=== PATIENT | male | born 1950 | race Caucasian/White ===

== ENCOUNTER 2017-11-23 04:58 | Inpatient (IN) | payer BC ==
[2017-11-23 05:48] LABS: #Eosinphils 0.4 thou/uL (0.0-0.7); #Monocytes 0.6 thou/uL (0.11-0.59); #Neutrophils 3.2 thou/uL (1.40-6.50); %Basophils 0.4 % (0.0-1.0); %Eosinophils 6.2 % (0.0-10.0); %Lymphocytes 32.7 % (21.0-51.0); %Monocytes 8.9 % (0.0-10.0); %Neutrophils 51.8 % (42.0-75.0); Hemoglobin 15.3 g/dL (14.0-18.0); Mean Corpuscular HGB CONC 34.3 g/dL (32.0-36.0); Mean Corpuscular Volume 93.3 fl (80.0-94.0); Mean Platelet Volume 8.6 fL (7.4-10.4); Platelet Count 216 thou/uL (130-400); RBC Distribution Width 11.8 % (11.5-14.5); Red Blood Cell (RBC) Count 4.78 mill/uL (4.70-6.10); White Blood Cell (WBC) Count 6.2 thou/uL (4.8-10.8)
[2017-11-23 05:53] LABS: PTT 27.9 SEC (22.9-36.1); Prothrombin Time 12.8 SEC (12.0-14.7)
[2017-11-23 06:14] LABS: ALT (SGPT) 20 U/L (8-55); AST (SGOT) 25 U/L (5-34); Albumin 4.5 g/dL (3.4-4.8); Alkaline Phosphatase 48 U/L (40-150); Anion Gap 12 mmol/L (10-20); BUN (Urea Nitrogen) 16 mg/dL (8.4-25.7); Bilirubin, Total 0.6 mg/dL (0.2-1.2); CK (CPK) 253 U/L (30-200); Calc. Creatinine Clearance 0 mL/min (70-130); Calcium 9.3 mg/dL (7.8-10.44); Carbon Dioxide 26 mmol/L (23-31); Chloride 103 mmol/L (98-107); Estimated GFR-MDRD 74; Globulin 2.7 g/dL (2.4-3.5); Glucose 114 mg/dL (80-115); Protein, Total 7.2 g/dL (5.8-8.1); Sodium 137 mmol/L (136-145)
[2017-11-23 06:18] LABS: CKMB 6.8 ng/mL (0-6.6); Troponin I 0.472 ng/mL (< 0.028)
[2017-11-23] MEDS ORDERED: Enoxaparin Sodium 100 MG/ML SYRINGE ONE (06:28)
[2017-11-23] MEDS ORDERED: Iopamidol 370 76% 100 ML VIAL ONE (06:50)
[2017-11-23] MEDS ORDERED: Acetaminophen 325 MG TAB PO PRN (08:23)
[2017-11-23] MEDS ORDERED: Ondansetron HCl/PF 4 MG/2 ML Vial IVP PRN (08:23)
[2017-11-23] MEDS ORDERED: Ondansetron ODT 4 MG TAB SL PRN (08:23)
[2017-11-23 08:26] VITALS: BMI 31.1
[2017-11-23] MEDS ORDERED: Nitroglycerin 0.4 MG TAB (25 Tab Bottle) SL PRN ×2 (08:35→14:00)
[2017-11-23] MEDS ORDERED: Bisacodyl 10 MG SUPP PR PRN (08:40)
[2017-11-23] MEDS ORDERED: Sodium Chloride 0.9% 1,000 ML IV SCH ×2 (08:45→14:00)
[2017-11-23] MEDS ORDERED: Aspirin 325 MG TAB PO SCH (09:00)
[2017-11-23] MEDS ORDERED: Enoxaparin Sodium 100 MG/ML SYRINGE SC SCH (09:00)
[2017-11-23] MEDS ORDERED: Carvedilol 3.125 MG TAB PO SCH (09:00)
--- NOTE | 2017-11-23 09:01 | RAD ---
ONE VIEW CHEST: History: Pain. Comparison: None. FINDINGS: Portable upright chest. Normal cardiac silhouette. The pulmonary vessels and hilum are normal. No con solidation or mass. No pneumothorax or osseous abnormality. IMPRESSION: No acute cardiopulmonary process. POS: RON
[2017-11-23] MEDS: Famotidine/PF 20 mg/2ml Vial SLOW IVP SCH ×2 (09:13→21:44)
[2017-11-23] MEDS: Docusate 100 MG CAP PO SCH ×2 (09:13→21:29)
[2017-11-23 09:57] LABS: Troponin I 1.002 ng/mL (< 0.028)
--- NOTE | 2017-11-23 10:44 | HP ---
PRIMARY CARE PHYSICIAN: Dr. Donte Vazquez. PROCESS DEVELOPMENT ENGINEER: Ho Cabrales M.D. CHIEF COMPLAINT: Chest pain. HISTORY OF PRESENT ILLNESS: A 66-year-old male with a known history of familial hyperlipidemia, who presents with a chief complaint of chest pain. The patient has been experiencing chest tightness int ermittently and not consistently reproducible with exertion over the last few months. 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 However, for the last 2 days, he describes ev kiser as a substernal chest pressure under his left chest radiating slightly to his upper portion of hi s left arm. The patient was subsequently brought into the Emergency Department for these symptoms. The patient denies any prior similar issues. Denies any overt shortness of breath with this episode. No episodes of diaphoresis. REVIEW OF SYSTEMS: As per HPI. CONSTITUTIONAL: No recent fevers or chills or acute illnesses. No recent significant weight changes . HEENT: No new headaches, lightheadedness, or vision changes. CARDIOVASCULAR: Chest pain, pressure as described above. RESPIRATORY: No recent upper respiratory infections, no cough. GASTROINTESTINAL: No nausea, vomiting, or abdominal pain. No issues with diarrhea or constipation. GENITOURINARY: No changes in urinary frequency quality or quantity. MUSCULOSKELETAL: No lower leg swelling or cramping. Remainder of review of systems otherwise negative. PAST MEDICAL HISTORY: As per HPI includes the following, history of familial hypertriglyceridemia. HOME MEDICATIONS: Include, 1. Aspirin 81 mg p.o. at bedtime. 2. Pitavastatin 2 mg p.o. at bedtime. ALLERGIES: No known drug allergies. FAMILY HISTORY: Significant for cardiovascular disease, specifically peripheral vascular disease sta tus what sounds like peripheral bypass in his mother. He also has 2 siblings, specifically sisters w ith a familial hypertriglyceridemia as well. SOCIAL HISTORY: Occasional alcohol use on a social basis. The patient is . Never a smoker. No illicit drug use. Recently went on a trip to the [facility], which involved a plane ride. Endorses wishes to be full code at this point in time. PHYSICAL EXAMINATION: GENERAL: The patient is awake, alert, appropriate, in no acute distress, lying in the hospital bed. HEENT: Normocephalic, atraumatic, moist mucous membranes, equal ocular motions are intact. CARDIOVASCULAR: S1 and S2. No murmurs, rubs, no gallops. Pulses 2+ bilateral upper extremities, 2+ bilateral lower extremities, no pitting pedal edema. RESPIRATORY: Reasonable air movement. No conversational dyspnea. No wheezes, rales, or rhonchi. ABDOMEN: Positive bowel sounds, soft, nondistended. MUSCULOSKELETAL: Moving all 4 extremities equally. LABORATORY DATA AND IMAGING: WBC 6.2, hemoglobin 15.3, hematocrit 44.6, platelets 216. PT 12.8, INR 1.0. Sodium 137, potassium 4.0, chloride 103, bicarbonate 26, BUN 16, creatinine 1.02, glucose 114, calcium 9.3, total bilirubin 0.6, AST 25, ALT 20, alkaline phosphatase 48, CK-MB 6.8. Creatinine ki nase 253, troponin 0.472. BNP natriuretic peptide 82.7, total protein 7.2, albumin 4.5. Chest x-ray on 11/23/2017, one view portable impression "no acute cardiopulmonary process." The image was reviewed by myself. I agree with the reading. The patient reports a stress test that was done on an outpatient basis with his patient care team in 07/2017, for which he was told was grossly negative. ASSESSMENT AND PLAN: This is a 66-year-old male presenting with acute onset chest discomfort and aram st pain over the last 2 days. 1. Chest pain. In the setting of an elevated troponin, suspect non-stemi myocardial infarction. Th e patient has been given a single dose of full dose Lovenox in the Emergency Department earlier. I w ill continue with aspirin. Patient is on statin, beta tara as tolerated with carvedilol, captopri l as tolerated hemodynamically. Cardiology has been consulted, the patient sees Dr. Cabrales on out patient basis. Question of whether or not the patient may need a heart catheterization. Trend tropo nins otherwise. Repeat fasting lipid panel. Check a hemoglobin A1c in the morning to evaluate for a ny potential other risk factors. Primary risk factors are his own personal history of familial hyper triglyceridemia, family history of peripheral vascular disease. 2. Hyperlipidemia, see discussion above, continue home regimen. 3. Diet: N.p.o. in case the patient needs heart catheterization. If no procedure is anticipated fo r today, may have cardiac diet. 4. Activity: As tolerated. ADMISSION: Telemetry, FULL CODE, inpatient.
[2017-11-23 12:13] LABS: Troponin I 1.475 ng/mL (< 0.028)
[2017-11-23] MEDS ORDERED: Lidocaine 1% (PF) 30 ML VIAL ONE (13:02)
[2017-11-23] MEDS ORDERED: Fentanyl 100 MCG/2 ML VIAL ONE (13:28)
[2017-11-23] MEDS ORDERED: Midazolam HCl 2 mg/2 ml Vial ONE (13:29)
[2017-11-23] MEDS ORDERED: Verapamil 5 MG/2 ML VIAL ONE (13:37)
[2017-11-23] MEDS ORDERED: Heparin 10,000 UNITS/1 ML VIAL ONE (13:37)
[2017-11-23] MEDS ORDERED: Nitroglycerin 100MG/250ML BOT 250 ML ONE (13:37)
[2017-11-23] MEDS ORDERED: Acetaminophen/Codeine 30-300mg Tablet PO PRN ×2 (14:00)
[2017-11-23] MEDS ORDERED: Sodium Chloride 0.9% 200 ML IV PRN (14:00)
[2017-11-23] MEDS ORDERED: traMADol HCl 50 MG TAB PO PRN (14:00)
[2017-11-23] MEDS ORDERED: Nitroglycerin 50 MG/250 ML BOT 250 ML ONE (14:01)
--- NOTE | 2017-11-23 14:25 | CON ---
DATE OF CONSULTATION: 11/23/2017 CONSULTING PHYSICIAN: Dr. Escudero. REASON FOR CONSULTATION: Non-Q wave AK. HISTORY OF PRESENT ILLNESS: Mr. Saleh is a very pleasant 66-year-old gentleman who has been seen an d evaluated in the past. He underwent a noninvasive stress study performed in 05/2017. He went 6 mi nutes 30 seconds on standard Lucho protocol. This was negative for ischemia. He had been treated fo r hyperlipidemia. He states he recently was on vacation when 3 days ago he began having pain. It was short lived. It then recurred on a 3-4 separate occasions. Last episode this morning at 4:30. He states he woke his and presented to the emergency room. His troponin was in the indeterminate range and was subse quently admitted. PAST MEDICAL HISTORY: Hyperlipidemia. HOME MEDICATIONS: Include aspirin and Livalo. ALLERGIES: None. FAMILY HISTORY: Positive for CAD. SOCIAL HISTORY: Positive alcohol use. He is currently . No current tobacco use. REVIEW OF SYSTEMS: Ten-point review of systems is as above, negative. PHYSICAL EXAMINATION: GENERAL: Patient is a pleasant male who is in no acute distress. The patient appears his stated age . VITAL SIGNS: Blood pressure 163/73, pulse 70, temperature afebrile. NEUROLOGIC: The patient is alert and oriented times 3 with no focal neurologic deficits. HEENT: Sclerae without icterus. Mouth has moist mucous membranes with normal pallor. NECK: No JVD. Carotid upstroke brisk. No bruits bilaterally. LUNGS: Clear to auscultation with unlabored respirations. BACK: No scoliosis or kyphosis. CARDIAC: Regular rate and rhythm with normal S1 and S2. No S3 or S4 noted. No significant rubs, mu rmurs, thrills, or gallops noted throughout the precordium. PMI is not displaced. There is no sanjay ternal heave. ABDOMEN: Soft, nontender, nondistended. No peritoneal signs present. No hepatosplenomegaly. No ab normal striae. EXTREMITIES: 2+ femoral and 2+ dorsalis pedis pulses. No cyanosis, clubbing, or edema. SKIN: No gross abnormalities. PERTINENT LABORATORY DATA: Hemoglobin 15.3. Peak troponin 1.47. Peak MB of 6.8, creatinine 1.02. D-dimer less than 0.027. IMPRESSION: Non-Q myocardial infarction. RECOMMENDATIONS: Mr. Saleh's main risk factor includes a family history and a positive hyperlipidem ia. His symptoms certainly suggest unstable angina. At this point, I recommend coronary angiography plus PCI. I discussed the procedure in full detail with Mr. Saleh. The risks of the procedure incl ude but are not limited to the following: , stroke, AK, need for emergency surgery, loss of fernández b, bleeding, and infection, as well as a reaction to the dye causing kidney failure and needing long- term dialysis. I also discussed the risks of PCI to include all of the above including coronary diss ection and perforation in addition to acute stent thrombosis and restenosis. All questions about the procedure were answered. Given the above, the patient agreed to proceed with coronary angiography a nd possible PCI. All questions about the procedure were answered. Given the above, I also discussed drug-coated versus nondrug coated stent placement. There are no contraindications, we will proceed if needed. Further recommendation pending the above. His was present during the discussion.
[2017-11-23] MEDS: Carvedilol 3.125 MG TAB PO SCH (17:33)
[2017-11-23] MEDS ORDERED: Nitroglycerin 50 MG/250 ML BOT 250 ML IVPB SCH (19:00)
--- NOTE | 2017-11-23 20:18 | CON ---
DATE OF CONSULTATION: 11/23/2017 HISTORY: A 66 soon to be 67-year-old gentleman presented with 1-week history of progressive chest di scomfort. He had previously been chest pain free, working out on a regular basis and then the past 2 weeks, he has noted some exertional discomfort prompting admission with a slight bump in his troponi n. He was found to have nonspecific ST-T wave abnormalities, occasional ectopy. Cardiac catheteriza tion today showed severe lesion in a small, but dominant right coronary artery, a small obtuse margin al and about 75% lesion in the LAD diagonal system. The diagonal had its own mid lesion. Ejection f raction was estimated to be normal and a cardiac echo is pending. PAST MEDICAL HISTORY: Includes familial dyslipidemia. He was noted to have hypertension on this adm ission, but not previously as he has been followed by Dr. Vazquez. LABORATORY VALUES: Showed a peak troponin of 1.5. Creatinine is normal. Hemoglobin is normal. PAST SURGICAL HISTORY: Vasectomy, wisdom teeth. SOCIAL HISTORY: , nonsmoker. HOME MEDICATIONS: Livalo 2 mg and aspirin. PHYSICAL EXAMINATION: VITAL SIGNS: Weight 229, height 6 feet. NECK: No carotid bruits. LUNGS: Clear to auscultation. CARDIAC: Heart rate 67. No murmurs. ABDOMEN: Soft, obese, nontender. EXTREMITIES: He is right arm dominant with a good plethysmography and Humberto's test on the left arm w ith radial compression. He has palpable pedal pulses in both feet with no peripheral edema. He has a right wrist puncture from his catheterization. PLAN: Plan at this time is LAD, diagonal, OM and right coronary grafting with the radial artery. GUEVARA LOEA as well to the LAD. Informed consent has been obtained. Plan on surgical intervention Thursday.
[2017-11-23] MEDS ORDERED: Non-Formulary Item 1 EACH (Pitavastatin Calcium 2 MG) PO SCH (21:00)
[2017-11-23] MEDS: Enoxaparin Sodium 100 MG/ML SYRINGE SC SCH (21:25)
[2017-11-23] MEDS ORDERED: Famotidine 20 MG TAB PO SCH (21:30)
[2017-11-23] MEDS: Atorvastatin Calcium 10 MG TAB PO SCH (21:32)
--- NOTE | 2017-11-23 22:06 | CON ---
DATE OF CONSULTATION: 11/23/2017 SERVICE: Pulmonary Medicine. REASON FOR CONSULTATION: ICU patient. HISTORY OF PRESENT ILLNESS: The patient is a 66-year-old white male with past medical history significant for essentially nothing. He had a negative stress test back in 04/2017. He is start an exercise routine. He is working with a hop strainer. Several times a week, he does extraordinarily intense exercise and breaks out in sweat from head to toe. He did not have any chest discomfort with doing these things. He was recently on vacation in the [facility]. When he return, he started having dyspnea and chest pain on exertion which was rapidly progressive over a period of 3 days. During one of these spells, he was directed to the emergency department. Workup demonstrated an abnormal troponin. It went up through the night. He was undergoing cardiac catheterization, which was abnormal. It is suggesting 3-vessel disease and a Cardiothoracic Surgery consultation was recommended. The patient's blood pressure was elevated during the catheterization. As such, he was initiated on a nitro drip and he is currently in the ICU. PAST MEDICAL HISTORY: 1. Coronary artery disease, new diagnosis. 2. Hypertension. 3. Dyslipidemia. PAST SURGICAL HISTORY: None. ALLERGIES: No known drug allergies. MEDICATIONS: List of his inpatient medications were reviewed. No specific updates were made. SOCIAL HISTORY: Negative for any tobacco, alcohol or illicit drug use. He has no exposure to chemicals, dust, asbestos or tuberculosis. He is a lifelong nonsmoker. FAMILY HISTORY: Noncontributory. REVIEW OF SYSTEMS: General, head, ears, eyes, nose, throat, cardiovascular, respiratory, GI, , musculoskeletal, neurologic and skin is negative except as mentioned in the HPI. PHYSICAL EXAMINATION: VITAL SIGNS: Afebrile, pulse 70, blood pressure 163/70, respirations 16, saturation 100% on room air. GENERAL: The patient is awake and alert, in no apparent distress. LUNGS: Excellent air entry without prolonged expiratory phase, wheezing, rhonchi or crackles. HEART: Normal rate and regular. ABDOMEN: Soft, nontender, nondistended. Bowel sounds are positive. MUSCULOSKELETAL: No cyanosis or clubbing. There is no pitting in the bilateral lower extremities. NEUROLOGIC: Grossly nonfocal. LABORATORY DATA: WBC 6.2, hemoglobin 15.3, platelets 216,000. INR 1.0, D- dimer 0.27. Troponin is up trending to 1.475. BNP 82. Basic metabolic profile and liver function studies are otherwise unremarkable. CK 253. IMAGING: Chest x-ray demonstrates no acute cardiopulmonary abnormality. ASSESSMENT: 1. Non-ST elevation myocardial infarction. 2. Coronary artery disease. 3. Dyslipidemia. 4. Hypertension. DISCUSSION AND PLAN: I will continue to follow along while the patient remains in the ICU. He is currently on a nitro drip. Cardiothoracic Surgery consultation is currently pending. The patient will be going down for revascularization procedure in 1-2 days. He is currently chest pain free. Family was updated at bedside. 70 minutes have been devoted to this patient in various activities. I personally reviewed all imaging studies and laboratory data noted within this document. For fifty percent of this time, I was interacting with the patient at the bedside or coordinating care with the care team. For the remainder of the time I was immediately available to the patient in the hospital unit. ODELL
[2017-11-24 04:39] LABS: #Eosinphils 0.1 thou/uL (0.0-0.7); #Lymphocytes 1.8 thou/uL (1.20-3.40); #Monocytes 0.7 thou/uL (0.11-0.59); #Neutrophils 5.7 thou/uL (1.40-6.50); %Basophils 0.4 % (0.0-1.0); %Eosinophils 1.4 % (0.0-10.0); %Lymphocytes 21.2 % (21.0-51.0); %Monocytes 8.6 % (0.0-10.0); %Neutrophils 68.5 % (42.0-75.0); Hemoglobin 13.8 g/dL (14.0-18.0); Mean Corpuscular HGB CONC 34.7 g/dL (32.0-36.0); Mean Corpuscular Hemoglobin 32.7 pg (27.0-31.0); Mean Corpuscular Volume 94.4 fl (80.0-94.0); Mean Platelet Volume 9.1 fL (7.4-10.4); Platelet Count 196 thou/uL (130-400); Red Blood Cell (RBC) Count 4.21 mill/uL (4.70-6.10); White Blood Cell (WBC) Count 8.3 thou/uL (4.8-10.8)
[2017-11-24 04:50] LABS: Hemoglobin A1c 5.3 % (4.0-6.0)
[2017-11-24 04:54] LABS: Anion Gap 9 mmol/L (10-20); BUN (Urea Nitrogen) 14 mg/dL (8.4-25.7); Calc. Creatinine Clearance 122 mL/min (70-130); Calcium 8.4 mg/dL (7.8-10.44); Carbon Dioxide 28 mmol/L (23-31); Cardiac Risk 7.5 (Less than 4.5); Chloride 106 mmol/L (98-107); Cholesterol 240 mg/dl (< 200 Desired); Estimated GFR-MDRD 85; Glucose 103 mg/dL (80-115); HDL Cholesterol 32 mg/dL (>60 Neg Risk); LDL Cholesterol, Calculated 183 mg/dL; Potassium 4.3 mmol/L (3.5-5.1); Sodium 139 mmol/L (136-145); Triglycerides 124 mg/dL (Less than 150)
[2017-11-24] MEDS ORDERED: Aspirin 325 MG TAB PO SCH (09:00)
[2017-11-24] MEDS: Docusate 100 MG CAP PO SCH ×2 (09:56→20:02)
[2017-11-24] MEDS: Famotidine 20 MG TAB PO SCH ×2 (09:56→20:02)
[2017-11-24] MEDS: Carvedilol 3.125 MG TAB PO SCH ×2 (09:57→17:32)
[2017-11-24] MEDS: Enoxaparin Sodium 100 MG/ML SYRINGE SC SCH (09:57)
--- NOTE | 2017-11-24 09:58 | PRG ---
DATE OF SERVICE: 11/24/2017 SERVICE: Pulmonary medicine. INTERVAL HISTORY: Patient is doing fine from cardiovascular and respiratory standpoint. He denies a ny current chest pain, nausea, vomiting, fevers, or chills. Overnight, in a couple of episodes of ch est discomfort. That being said, they were short lived and less severe than they were previously. James norman continues to be on blood thinners. He requires nitro drip for his blood pressure. PHYSICAL EXAMINATION: VITAL SIGNS: Afebrile, pulse 60, blood pressure 132/64, respirations 19, saturation 97% on room air. GENERAL: Patient is awake, alert, in no apparent distress. LUNGS: Excellent air entry. There is no prolonged expiratory phase, wheezing, rhonchi, or crackles present. HEART: Normal rate, regular. ABDOMEN: Soft, nontender, nondistended. Bowel sounds are positive. MUSCULOSKELETAL: No cyanosis or clubbing. There is no pitting in the bilateral lower extremities. NEUROLOGIC: Grossly nonfocal. LABORATORY DATA: WBC 8.3, hemoglobin 13.8. Basic metabolic profile is completely unremarkable. Tot al cholesterol 240 with an LDL above goal at 183. Hemoglobin A1c 5.3. ASSESSMENT: 1. Non-ST elevation myocardial infarction. 2. Coronary artery disease. 3. Dyslipidemia. 4. Hypertension. PLAN: The patient will remain in the ICU. He is going for coronary artery bypass graft tomorrow subhash chung assuming all goes well. I will continue blood thinners, antiplatelet medications, and nitro dri p. Pulmonary and Critical Care will continue to follow along for the time being. We will continue t o follow along while he remains in this location.
[2017-11-24] MEDS ORDERED: Communication Order-Pharmacy FS SCH (12:40)
--- NOTE | 2017-11-24 13:53 | PDOC.CTH ---
Cardiology Progress Note - Subjective Doing well. No complaints - Objective Vital Signs Temp Pulse Pulse BP BP BP Pulse Ox 11/24/17 09:57 140/62 11/24/17 09:34 67 68 134/67 140/62 94 L 11/24/17 07:00 98.3 F 11/24/17 03:00 97.7 F Pulse Ox 11/24/17 09:57 11/24/17 09:34 95 11/24/17 07:00 11/24/17 03:00 Weight 229 lb 11.2 oz 11/23/17 11/24/17 11/25/17 06:59 06:59 06:59 Intake Total 2545 300 Output Total 1575 1200 Balance 970 -900 - Physical Examination General/Neuro: alert & oriented x3, NAD, other: Neck: carotid US brisk, no JVD present, other: Lungs: CTA, unlabored respirations, other: Heart: PMI normal, RRR, other: Abdomen: no HSM, NT/ND, soft, other: Extremities: + femoral B - Labs Result Diagrams: 11/24/17 03:23 11/24/17 03:23 Troponin/CKMB CK-MB (CK-2) 6.8 ng/mL (0-6.6) H* 11/23/17 05:31 Troponin I 1.475 ng/mL (< 0.028) H* 11/23/17 11:20 - Assessment/Plan 1. NQWMI 2. Severe 3VD 3. HTN 4. Hyperlipidemia Continue lovenox with last dose this evening CABG tomorrow Statin treat for now and change to praluent as outpatient
[2017-11-24] MEDS: Atorvastatin Calcium 10 MG TAB PO SCH (20:02)
--- NOTE | 2017-11-25 00:33 | PDOC.PN ---
- Subjective Encounter Start Date: 11/24/17 Encounter Start Time: 15:00 Subjective: nsg notes rev, baron ovn, no new c/o, at bedside -: reviewed results again from [facility] and plan for AM - Objective Resuscitation Status: Resuscitation Status FULL:Full Resuscitation Vital Signs & Weight: Vital Signs (12 hours) Temp Pulse Resp BP Pulse Ox 11/25/17 00:00 98.0 F 11/24/17 20:02 152/67 H 11/24/17 20:00 97.6 F 74 22 H 97 11/24/17 16:00 98.0 F 11/24/17 15:40 140/62 Weight Weight 229 lb 11.2 oz Most Recent Monitor Data Heart Rate from ECG 63 NIBP 119/52 NIBP BP-Mean 71 Respiration from ECG 16 SpO2 94 I&O: 11/23/17 11/24/17 11/25/17 06:59 06:59 06:59 Intake Total 2545 980 Output Total 1575 1750 Balance 970 -770 Result Diagrams: 11/24/17 03:23 11/24/17 03:23 Phys Exam - Physical Examination Constitutional: NAD HEENT: moist MMs, sclera anicteric Respiratory: no wheezing, no rales, no rhonchi, clear to auscultation bilateral Cardiovascular: RRR, no significant murmur, no rub Gastrointestinal: soft, non-tender, no distention, positive bowel sounds Musculoskeletal: no edema, pulses present Neurological: moves all 4 limbs Psychiatric: normal affect, A&O x 3 Dx/Plan - Plan * NSTEMI * CAD s/p [facility], plan for CV surg, CABG tomorrow HLD stable Diet: cardiac, NPO After midnight Activity: will need cardiac rehab at d/c dvt ppx Review of Systems - Medications/Allergies Allergies/Adverse Reactions: Allergies Allergy/AdvReac Type Severity Reaction Status Date / Time No Known Drug Allergies Allergy Verified 11/23/17 08:23 Medications: Current Medications Acetaminophen/Codeine Phosphate (Tylenol #3) 1 tab PO Q4H PRN PRN Reason: Mild Pain (1-3) Stop: 11/25/17 08:59 Acetaminophen/Codeine Phosphate (Tylenol #3) 2 tab PO Q4H PRN PRN Reason: Moderate Pain (4-6) Stop: 11/25/17 08:59 Aspirin (Aspirin) 325 mg PO DAILY [facility] Stop: 11/25/17 08:59 Last Admin: 11/24/17 09:57 Dose: 325 mg Atorvastatin Calcium (Lipitor) 10 mg PO HS [facility] Stop: 11/25/17 08:59 Last Admin: 11/24/17 20:02 Dose: 10 mg Bisacodyl (Dulcolax) 10 mg [place] Q24H PRN PRN Reason: Constipation Stop: 11/25/17 08:59 Captopril (Capoten) 6.25 mg PO TID [facility] Last Admin: 11/24/17 20:02 Dose: 6.25 mg Carvedilol (Coreg) 3.125 mg PO BID-[facility] Last Admin: 11/24/17 17:32 Dose: 3.125 mg Docusate Sodium (Colace) 100 mg PO BID [facility] Stop: 11/25/17 08:59 Last Admin: 11/24/17 20:02 Dose: 100 mg Famotidine (Pepcid) 20 mg PO BID [facility] Stop: 11/25/17 08:59 Last Admin: 11/24/17 20:02 Dose: 20 mg Nitroglycerin/Dextrose (Nitroglycerin 50 Mg/250 Ml Bot) 250 mls @ 0 mls/hr IVPB INF ELIZABETH PRN Reason: As Directed Stop: 11/25/17 08:59 Last Admin: 11/24/17 23:02 Dose: 250 mls Miscellaneous Information (Communication Order-Pharmacy) 1 each FS ONE [facility] Stop: 11/25/17 08:59 Miscellaneous Medication (Pharmacy To Dose) 1 each IVPB ASDIR ELIZABETH Nitroglycerin (Nitrostat) 0.4 mg SL Q5MIN PRN PRN Reason: Chest Pain Stop: 11/25/17 08:59 Sodium Chloride (Flush - Normal Saline) 10 ml IVF Q12HR [facility] Stop: 11/25/17 08:59 Last Admin: 11/24/17 20:03 Dose: 10 ml Sodium Chloride (Flush - Normal Saline) 10 ml IVF PRN PRN PRN Reason: Saline Flush Stop: 11/25/17 08:59 Tramadol HCl (Ultram) 50 mg PO Q6H PRN PRN Reason: Moderate Pain (4-6) Stop: 11/25/17 08:59
[2017-11-25] MEDS ORDERED: Albumin 5% 500 ML ONE (06:32)
[2017-11-25] MEDS ORDERED: Dexmedetomidine 200 MCG/2 ML VIAL ONE (06:33)
[2017-11-25] MEDS ORDERED: Midazolam HCl 5 mg/5 ml Vial ONE (06:33)
[2017-11-25] MEDS ORDERED: Fentanyl 100 MCG/2 ML VIAL ONE (06:33)
[2017-11-25] MEDS ORDERED: Vecuronium 10 MG VIAL ONE ×3 (06:33→12:35)
[2017-11-25] MEDS ORDERED: Heparin 10,000 UNITS/1 ML VIAL 30,000 UNITS, Admixture Fee 1 EACH in Sodium Chloride 0.... IVPB SCH (06:45)
[2017-11-25] MEDS: Carvedilol 3.125 MG TAB PO SCH (06:53)
[2017-11-25] MEDS ORDERED: CEFAZOLIN/Water 2 GM/20 ML SYRINGE ONE (07:10)
[2017-11-25] MEDS ORDERED: Lidocaine 1% (PF) 30 ML VIAL ONE (07:21)
[2017-11-25] MEDS ORDERED: Bivalirudin 250 MG VIAL ONE ×2 (09:58→10:46)
[2017-11-25] MEDS ORDERED: Sodium Bicarb 50 MEQ/50 ML Abboject 8.4% SYRINGE ONE (12:35)
[2017-11-25] MEDS ORDERED: PROPOFOL 200 MG/20 ML VIAL ONE (12:35)
[2017-11-25] MEDS ORDERED: Papaverine 60 MG/2 ML VIAL ONE (12:35)
[2017-11-25] MEDS ORDERED: Calcium Chloride 1 GM/10 ML Abboject SYRINGE ONE (12:35)
[2017-11-25] MEDS ORDERED: Heparin 5,000 UNITS/ML VIAL ONE (12:35)
[2017-11-25] MEDS ORDERED: Cardioplegic Soln 1,000 ML BAG ONE (12:35)
[2017-11-25] MEDS ORDERED: PHENYLEPHRINE-NS 100 MCG/ML 10 ML SYRINGE ONE (12:35)
[2017-11-25] MEDS ORDERED: Thrombin 5000 UNITS/5 ML VIAL ONE (12:35)
[2017-11-25] MEDS ORDERED: Protamine Sulfate 250 MG/25 ML VIAL ONE (12:35)
[2017-11-25] MEDS ORDERED: ePHEDrine/0.9% NaCl/PF SYRINGE 50 mg/10 ml ONE (12:35)
[2017-11-25] MEDS ORDERED: Lidocaine 1% PF 5 ML VIAL ONE (12:35)
[2017-11-25] MEDS ORDERED: Heparin 30,000 units/30 ml VIAL ONE (12:35)
[2017-11-25] MEDS ORDERED: Nitroglycerin 50 MG/250 ML BOT ONE (12:35)
--- NOTE | 2017-11-25 12:42 | OP ---
PREOPERATIVE DIAGNOSIS: Coronary artery disease. PROCEDURES PERFORMED: Coronary bypass graft x4, left internal mammary artery good quality to a 1.5 m m distal LAD, saphenous vein somewhat large to a 1.5 mm diseased distal right coronary artery, saphen ous vein somewhat large to a 1.5 mm diagonal radial artery to a 1.5-2 mm OM1. SURGEON: Austyn Figueroa M.D. ANESTHESIA: General. MOLD SHOP SUPERVISOR: Carrington Luis M.D. PROCEDURE IN DETAIL: After adequate anesthesia had been obtained, the patient was prepped and draped and I initially harvested the left radial artery, ensuring good collateral flow. This incision was then closed and I turned my attention to the left greater saphenous vein. Based on preoperative ultr asonography, the greater saphenous vein from the groin to the mid thigh was much too large to use, so an incision was made at the knee and carried distally on the leg where the vein was more suitable in size. Following harvesting of this, I turned my attention to median sternotomy where the left inter nal mammary artery was harvested entering the left pleura. After heparinization, the mammary was div ided distally, passed posterior to the thymus gland. Aorta and right atrium were cannulated; however ACT levels did not rise above 420 despite greater than 60,000 units of heparin. The patient was the n loaded with Angiomax and an infusion begun. Cardiopulmonary bypass instituted. Vessels were inspe cted for grafting, the aorta was cross-clamped and a liter of cold blood cardioplegic solution was gi dainel. Following this, the four distal anastomoses were then completed passing a 1.5 mm probe through the distal right coronary artery prior to tying the suture line as well as through the obtuse margina l prior to tying the suture line. After completing the four distal anastomoses, the crossclamp was r emoved and the partial occluding clamp placed and 2 venous anastomoses were performed on the aortic r oot. Following this to the box of the right coronary graft, the radial artery graft was placed. Pr oximal and distal anastomoses were then inspected following which the patient was weaned from cardiop ulmonary bypass. Cannulas were removed and cannulation sites oversewn with Prolene suture. Protamin e was given to reverse the heparin and the Angiomax was stopped prior to coming off pump. Mediastina l and left pleural drains were placed following which the sternum was reapproximated with #7 interrup lorenzo wire using vancomycin paste on the sternal edges, platelet rich blood, and platelet-poor plasma. Subcutaneous tissue and skin were closed in layers.
[2017-11-25 12:50] LABS: Actual Bicarbonate (HCO3a) 25.5 mEq/L (22-26); Base Excess (BEa) -1.4 mEq/L (0 (+/-) 2.5); CO2 Tension 50.2 mmHg (35.0-45.0); Hemoglobin (Hb) 12.4 g/dL (14.0-18.0); O2 Tension (PaO2) 94.9 mmHg (80.0-100.0); pH, Arterial 7.31 (7.35-7.45)
[2017-11-25] MEDS ORDERED: Acetaminophen 325 MG TAB PO PRN (12:50)
[2017-11-25] MEDS ORDERED: Nitroglycerin 50 MG/250 ML BOT 250 ML IVPB PRN (12:50)
[2017-11-25] MEDS ORDERED: Norepinephrine 8 MG/0.9% NS 250 ML IVPB PRN (12:50)
[2017-11-25] MEDS ORDERED: DOPamine 400 MG/D5W 250 ML 250 ML IVPB PRN (12:50)
[2017-11-25] MEDS ORDERED: Guaifenesin DM 100-10/5 ML UDCUP PO PRN (12:50)
[2017-11-25] MEDS ORDERED: Bisacodyl 5 MG TAB PO PRN (12:50)
[2017-11-25] MEDS ORDERED: Phenylephrine 10 MG/NS 250 ML 250 ML IVPB PRN (12:50)
[2017-11-25] MEDS ORDERED: Morphine 4 MG/ML VIAL SLOW IVP PRN (12:50)
[2017-11-25] MEDS ORDERED: Potassium Chloride 20 MEQ/100 ML PREMIX BAG IVPB PRN (12:50)
[2017-11-25] MEDS ORDERED: Post-Op Insulin Drip Protocol IVPB ONE (12:50)
[2017-11-25] MEDS ORDERED: Hetastarch 6% 500 ML 500 ML IVPB PRN (12:50)
[2017-11-25] MEDS ORDERED: Promethazine HCl 25 MG/ML VIAL IM PRN (12:50)
[2017-11-25] MEDS ORDERED: Fentanyl 100 MCG/2 ML VIAL SLOW IVP PRN ×2 (12:50)
[2017-11-25] MEDS ORDERED: HYDROcodone/Acetaminophen 5/325 mg Tablet PO PRN (12:50)
[2017-11-25] MEDS ORDERED: Bisacodyl 10 MG SUPP PR PRN (12:50)
[2017-11-25] MEDS ORDERED: Ondansetron HCl/PF 4 MG/2 ML Vial IVP PRN (12:50)
[2017-11-25] MEDS ORDERED: Mag-Al 1200 mg/1200 mg/30 ML UDCUP PO PRN (12:50)
[2017-11-25] MEDS ORDERED: hydrALAZINE 20 MG/ML VIAL SLOW IVP PRN (12:50)
[2017-11-25 12:51] LABS: Calcium, Ionized 1.2 mmol/L (1.12-1.30); Puncture Site A-LINE
[2017-11-25 12:56] LABS: Actual Bicarbonate (HCO3a) 25.5 mEq/L (22-26); Base Excess (BEa) -1.4 mEq/L (0 (+/-) 2.5); CO2 Tension 50.4 mmHg (35.0-45.0); Hemoglobin (Hb) 12.4 g/dL (14.0-18.0); O2 Tension (PaO2) 94.9 mmHg (80.0-100.0); pH, Arterial 7.31 (7.35-7.45)
[2017-11-25 12:57] LABS: Calcium, Ionized 1.2 mmol/L (1.12-1.30); Puncture Site A-LINE
[2017-11-25] MEDS: Lactated Ringer's 1,000 ML IV SCH ×2 (13:00→23:20)
[2017-11-25] MEDS ORDERED: Dextrose 5% in Water 1,000 ML IV PRN (13:01)
[2017-11-25] MEDS ORDERED: Dextrose 50% Abboject 50 ML SYRINGE SLOW IVP PRN (13:01)
[2017-11-25 13:11] LABS: #Eosinphils 0.2 thou/uL (0.0-0.7); #Lymphocytes 1.9 thou/uL (1.20-3.40); #Monocytes 0.7 thou/uL (0.11-0.59); #Neutrophils 11.5 thou/uL (1.40-6.50); %Basophils 0.1 % (0.0-1.0); %Eosinophils 1.3 % (0.0-10.0); %Lymphocytes 13.4 % (21.0-51.0); %Monocytes 4.9 % (0.0-10.0); %Neutrophils 80.3 % (42.0-75.0); Hemoglobin 12.8 g/dL (14.0-18.0); Mean Corpuscular HGB CONC 33.5 g/dL (32.0-36.0); Mean Corpuscular Hemoglobin 31.8 pg (27.0-31.0); Mean Corpuscular Volume 94.8 fl (80.0-94.0); Mean Platelet Volume 8.5 fL (7.4-10.4); Platelet Count 142 thou/uL (130-400); RBC Distribution Width 11.7 % (11.5-14.5); Red Blood Cell (RBC) Count 4.03 mill/uL (4.70-6.10); White Blood Cell (WBC) Count 14.3 thou/uL (4.8-10.8)
[2017-11-25 13:24] LABS: INR-International Normal Ratio 2.3; PTT 66.4 SEC (22.9-36.1); Prothrombin Time 25.7 SEC (12.0-14.7)
[2017-11-25 13:26] LABS: Anion Gap 6 mmol/L (10-20); BUN (Urea Nitrogen) 14 mg/dL (8.4-25.7); Calc. Creatinine Clearance 137 mL/min (70-130); Calcium 7.9 mg/dL (7.8-10.44); Carbon Dioxide 27 mmol/L (23-31); Chloride 111 mmol/L (98-107); Estimated GFR-MDRD Greater than 90; Glucose 146 mg/dL (80-115); Potassium 4.4 mmol/L (3.5-5.1); Sodium 140 mmol/L (136-145)
[2017-11-25] MEDS: Insulin Regular 300 UNITS/3 ML VIAL SC PRN ×3 (13:26→19:50)
[2017-11-25] MEDS ORDERED: Magnesium Sulfate 5 GM in Sodium Chloride 0.9% 1,000 ML IV SCH (13:30)
--- NOTE | 2017-11-25 14:04 | RAD ---
PORTABLE AP CHEST XRAY: DATE: 11/25/17. HISTORY: Post open heart surgery. COMPARISON: 11/23/17. FINDINGS: There have been interval postsurgical changes related to CABG. Endotracheal tube is noted in place w ith the tip overlying the T3-4 level and well above the level of the don. Right subclavian centra l venous catheter is noted in place with the tip overlying the cavoatrial junction. Nasogastric tube as well as a left-sided thoracostomy tube are present with probable mediastinal drain present. Ther e is atelectasis present at each lung base. No pneumothorax or definite pleural effusion is apprecia lorenzo. IMPRESSION: 1. Postsurgical changes related to recent CABG with lines and tubes in place as described above. 2. Bibasilar atelectasis. POS: CHANDRAKANT
[2017-11-25 14:24] LABS: Actual Bicarbonate (HCO3a) 23.5 mEq/L (22-26); Base Excess (BEa) -1.6 mEq/L (0 (+/-) 2.5); CO2 Tension 40.9 mmHg (35.0-45.0); Calcium, Ionized 1.1 mmol/L (1.12-1.30); Hemoglobin (Hb) 13.3 g/dL (14.0-18.0); O2 Tension (PaO2) 85.6 mmHg (80.0-100.0); pH, Arterial 7.38 (7.35-7.45)
[2017-11-25 14:25] LABS: ALV-art Gradient 148.475 (0-20); Puncture Site A-LINE
[2017-11-25] MEDS: Ketorolac Tromethamine 30 MG/ML VIAL IVP SCH ×3 (15:21→23:21)
[2017-11-25] MEDS: CEFAZOLIN/Water 2 GM/20 ML SYRINGE SLOW IVP SCH ×2 (15:23→23:21)
[2017-11-25] MEDS: HYDROcodone/Acetaminophen 5/325 mg Tablet PO PRN ×2 (16:37→23:26)
--- NOTE | 2017-11-25 17:19 | PDOC.CTH ---
Cardiology Progress Note - Subjective Recent CABG. Doing well. Intubated but awake - ROS not able to obtain ROS - Objective Vital Signs Temp Pulse Resp BP Pulse Ox 11/25/17 14:30 93 15 99 11/25/17 13:53 98.4 F 87 14 100 11/25/17 13:46 87 127/65 11/25/17 13:29 80 144/76 H 11/25/17 12:41 80 134/77 11/25/17 07:41 98.3 F 77 18 94 L 11/25/17 07:00 98.3 F 11/25/17 06:55 149/76 H Weight 229 lb 11.2 oz 11/24/17 11/25/17 11/26/17 06:59 06:59 06:59 Intake Total 2545 1056 Output Total 1575 2050 0 Balance 970 -994 0 - Physical Examination General/Neuro: NAD Neck: carotid US brisk, no JVD present, other: Lungs: CTA, unlabored respirations, other: Heart: PMI normal, RRR, other: Abdomen: no HSM, NT/ND, soft, other: Extremities: + femoral B - Labs Result Diagrams: 11/25/17 12:50 11/25/17 12:50 Troponin/CKMB CK-MB (CK-2) 6.8 ng/mL (0-6.6) H* 11/23/17 05:31 Troponin I 1.475 ng/mL (< 0.028) H* 11/23/17 11:20 - Assessment/Plan 1. NQWMI 2. Severe 3VD 3. HTN 4. Hyperlipidemia 5. s/op CABG Doing well post op Wean the vent titrate down IV nitro as tolerate. Will follow
[2017-11-25 18:52] LABS: Hemoglobin 13.2 g/dL (14.0-18.0)
[2017-11-25 19:06] LABS: Potassium 4.3 mmol/L (3.5-5.1)
--- NOTE | 2017-11-25 20:36 | EKG ---
Test Reason : POST CABG Blood Pressure : / mmHG Vent. Rate : 088 BPM Atrial Rate : 088 BPM P-R Int : 164 ms QRS Dur : 094 ms QT Int : 386 ms P-R-T Axes : 082 -62 047 degrees QTc Int : 467 ms Sinus rhythm with Premature supraventricular complexes Left anterior fascicular block Cannot rule out Inferior infarct (masked by fascicular block?) , age undetermined Abnormal ECG When compared with ECG of 23-NOV-2017 05:04, (Unconfirmed) Premature supraventricular complexes are now Present Minimal criteria for Inferior infarct are now Present Nonspecific T wave abnormality now evident in Lateral leads QT has lengthened Confirmed by DAVID GAINES, DR. Altamirano ([id number]) on 11/25/2017 8:36:04 PM Referred By: IRA Confirmed By:DR. Adarsh HERNANDEZ MD
[2017-11-25] MEDS ORDERED: Famotidine/PF 20 mg/2ml Vial SLOW IVP SCH (21:00)
--- NOTE | 2017-11-25 23:16 | PDOC.PN ---
- Subjective Encounter Start Date: 11/25/17 Encounter Start Time: 17:00 Subjective: nsg notes rev, baron ovn, no new issues post CABG - Objective Resuscitation Status: Resuscitation Status FULL:Full Resuscitation Vital Signs & Weight: Vital Signs (12 hours) Temp Pulse Resp BP Pulse Ox 11/25/17 20:00 97.8 F 101 H 15 95 11/25/17 19:00 97.8 F 11/25/17 16:00 98.0 F 99 11/25/17 14:30 93 15 99 11/25/17 13:53 98.4 F 87 14 100 11/25/17 13:46 87 127/65 11/25/17 13:29 80 144/76 H 11/25/17 12:41 80 134/77 Weight Weight 229 lb 11.2 oz Most Recent Monitor Data Heart Rate from ECG 94 NIBP 122/75 NIBP BP-Mean 98 Respiration from ECG 12 SpO2 99 I&O: 11/24/17 11/25/17 11/26/17 06:59 06:59 06:59 Intake Total 2545 1056 1348 Output Total 1575 2050 1540 Balance 970 -994 -192 Result Diagrams: 11/25/17 18:24 11/25/17 18:24 Additional Labs: Accuchecks 11/25/17 11/25/17 11/25/17 19:51 17:26 12:47 POC Glucose 148 H 142 H 140 H 11/25/17 11/25/17 11/25/17 12:08 11:25 11:05 POC Glucose 166 H 188 H 185 H 11/25/17 11/25/17 11/25/17 10:44 10:26 09:33 POC Glucose 163 H 144 H 137 H 11/25/17 07:59 POC Glucose 119 H Dx/Plan - Plan * NSTEMI * appreciate cardiology c/s * appreciate CV surg c/s * s/p CABG, tolerated procedure well, resting comfortably HLD stable Diet: as per surgery Activity: will need cardiac rehab at d/c, possibly outpatient dvt ppx
[2017-11-26 04:18] LABS: #Lymphocytes 1.2 thou/uL (1.20-3.40); #Monocytes 1.1 thou/uL (0.11-0.59); %Basophils 0.1 % (0.0-1.0); %Eosinophils 0.1 % (0.0-10.0); %Lymphocytes 11.8 % (21.0-51.0); %Monocytes 10.3 % (0.0-10.0); %Neutrophils 77.6 % (42.0-75.0); Hemoglobin 12.1 g/dL (14.0-18.0); Mean Corpuscular HGB CONC 33.6 g/dL (32.0-36.0); Mean Corpuscular Volume 95.2 fl (80.0-94.0); Mean Platelet Volume 8.4 fL (7.4-10.4); Platelet Count 153 thou/uL (130-400); RBC Distribution Width 11.7 % (11.5-14.5); White Blood Cell (WBC) Count 10.3 thou/uL (4.8-10.8)
[2017-11-26 04:43] LABS: Anion Gap 7 mmol/L (10-20); BUN (Urea Nitrogen) 15 mg/dL (8.4-25.7); Calc. Creatinine Clearance 139 mL/min (70-130); Calcium 8.2 mg/dL (7.8-10.44); Carbon Dioxide 29 mmol/L (23-31); Chloride 107 mmol/L (98-107); Estimated GFR-MDRD Greater than 90; Glucose 117 mg/dL (80-115); Potassium 4.2 mmol/L (3.5-5.1); Sodium 139 mmol/L (136-145)
[2017-11-26] MEDS: Ketorolac Tromethamine 30 MG/ML VIAL IVP SCH ×3 (05:00→17:10)
[2017-11-26] MEDS: HYDROcodone/Acetaminophen 5/325 mg Tablet PO PRN ×3 (05:01→21:33)
[2017-11-26] MEDS: Lactated Ringer's 500 ML IV SCH ×2 (08:29→17:06)
--- NOTE | 2017-11-26 09:02 | PRG ---
DATE OF SERVICE: 11/25/2017 SERVICE: Pulmonary Medicine. INTERVAL HISTORY: The patient just had his coronary artery bypass graft. He returned to the ICU, in tubated. He is slowly waking up from sedation. He has no specific complaints. There were no specif ic events. He is a little hypertensive, requiring some blood pressure medications, which have been w eaned off with p.r.n. intermittent dosing of hydralazine. PHYSICAL EXAMINATION: VITAL SIGNS: Afebrile, pulse 83, blood pressure 122/61, respirations 14, saturation 100% on 40% FiO2 . GENERAL: The patient is intubated and under the influence of some sedation. HEENT: Normocephalic, atraumatic. Sclerae are white. Conjunctivae pink. Oral and nasal mucosa is moist without lesions. LUNGS: Decent air entry. There is no prolonged expiratory phase. HEART: Normal rate, regular. ABDOMEN: Soft, nontender, nondistended. Bowel sounds are positive. MUSCULOSKELETAL: No cyanosis or clubbing. There is no pitting. GENITOURINARY: Jimenez catheter in place. NEUROLOGIC: Grossly nonfocal. LABORATORY DATA: WBC 14.3, hemoglobin 12.8, platelets 142,000. INR 2.3. A pH 7.38, pCO2 of 41, pO2 of 85. Basic metabolic profile is essentially unremarkable with a creatinine of 0.8. IMAGING: Chest x-ray demonstrates endotracheal tube is 5 cm above the don. There is a right subc lavian central venous catheter in good position. New sternotomy wires are present. Enteric catheter courses below the level of the diaphragm. There is a right-sided thoracostomy drain, which is in go od position. I cannot identify the mediastinal drain. There is some bibasilar volume loss, which ac centuated our interstitial and vascular markings. ASSESSMENT: 1. Non-ST elevation myocardial infarction. 2. Coronary artery disease, status post coronary artery bypass graft, postop day #0. 3. Dyslipidemia. 4. Hypertension. DISCUSSION AND PLAN: The patient will remain in the ICU. We are going to give him a spontaneous doreen athing trial once he comes around a little bit more. Once he does, extubation will be considered. P ulmonary Critical Care will continue to follow along. CRITICAL CARE TIME: 30 minutes.
[2017-11-26] MEDS: Famotidine 20 MG TAB PO SCH ×2 (09:26→20:51)
[2017-11-26] MEDS: Aspirin 325 MG TAB PO SCH (09:27)
[2017-11-26] MEDS: CEFAZOLIN/Water 2 GM/20 ML SYRINGE SLOW IVP SCH (09:28)
--- NOTE | 2017-11-26 09:43 | RAD ---
FRONTAL RADIOGRAPH OF CHEST: Date: 11/26/17 COMPARISON: 11/25/17. HISTORY: Status post open heart surgery. FINDINGS: Endotracheal tube and nasogastric tube have been removed. Stable right-sided vascular catheter. No pn eumothorax is seen. Midline sternotomy wires are present. Stable postoperative drain overlies the mediastinum and medial aspect of left hemithorax superiorly. Dense opacity noted in the medial left base suggesting partial consolidation/collapse of the left low er lobe. IMPRESSION: Lines and tubes as detailed above. Increased density noted in the medial left lung base. POS: [facility]
--- NOTE | 2017-11-26 10:02 | PRG ---
DATE OF SERVICE: 11/26/2017 SERVICE: Pulmonary Medicine. INTERVAL HISTORY: The patient is doing fantastic from a respiratory standpoint. He continues to put a bloody fluid out of the chest tube. Otherwise, there were no overnight events. When he got up into a chair, he got a little bit lightheaded and his blood pressures fell off. That being said, back in bed, his blood pressures are now in the 180s. Lightheadedness feeling has resolved. PHYSICAL EXAMINATION: VITAL SIGNS: Afebrile, pulse 88, blood pressure 172/78, respirations 14, saturation 98% on 2 liters nasal cannula. GENERAL: The patient is awake, alert, no apparent distress. LUNGS: Excellent air entry without prolonged expiratory phase, wheezing, rhonchi or crackles. HEART: Normal rate, regular. ABDOMEN: Soft, nontender, and nondistended. Bowel sounds are positive. MUSCULOSKELETAL: No cyanosis or clubbing. There is no pitting in the bilateral lower extremities. NEUROLOGIC: Grossly nonfocal. LABORATORY DATA: Hemoglobin 12.1 and gently down trending, CBC is otherwise unremarkable. Creatinine 0.79 and stable. Basic metabolic profile is unremarkable. IMAGING DATA: Chest x-ray demonstrates left side thoracostomy drains in good position. There is some left basilar atelectasis present. It likely encompasses the entirety of the left lower lobe. There is a right subclavian central venous catheter that terminates in good position. ASSESSMENT: 1. Acute hypoxic respiratory failure. 2. Atelectasis of the entirety of the left lower lobe. 3. Non-ST elevation myocardial infarction. 4. Coronary artery disease, status post coronary artery bypass graft, postoperative day #1. 5. Dyslipidemia. 6. Hypertension. DISCUSSION AND PLAN: We will work on pulmonary toileting and mobilize him as much as tolerated. I gave him proper instructions on the incentive spirometer. He will remain in the ICU until some of these tubes and lines were removed. He currently has elevated blood pressures, but I will not be too aggressive with management given his recent lability. ODELL
[2017-11-26] MEDS ORDERED: Digoxin 0.5 MG/2 ML AMP ONE (11:26)
[2017-11-26] MEDS ORDERED: Diltiazem HCl 125 MG, Admixture Fee 1 EACH in Sodium Chloride 0.9% 100 ML IVPB SCH (11:30)
[2017-11-26] MEDS ORDERED: Digoxin 0.5 MG/2 ML AMP SLOW IVP SCH ×2 (11:30→16:00)
--- NOTE | 2017-11-26 11:37 | PDOC.CTH ---
Cardiology Progress Note - Subjective No complaints. Developed post op afib today. - Objective Vital Signs Temp Pulse Resp Pulse Ox 11/26/17 08:00 98.3 F 88 14 98 11/26/17 07:00 98.3 F 11/26/17 03:00 98.7 F Weight 210 lb 15.718 oz 11/25/17 11/26/17 11/27/17 06:59 06:59 06:59 Intake Total 1056 2818 1120 Output Total 2049 Balance -994 813 855 - Physical Examination General/Neuro: alert & oriented x3, NAD Neck: carotid US brisk, no JVD present Lungs: CTA, unlabored respirations Heart: RRR Abdomen: NT/ND, soft Extremities: + femoral B - Labs Result Diagrams: 11/26/17 04:00 11/26/17 04:00 Troponin/CKMB CK-MB (CK-2) 6.8 ng/mL (0-6.6) H* 11/23/17 05:31 Troponin I 1.475 ng/mL (< 0.028) H* 11/23/17 11:20 - Assessment/Plan 1. NQWMI 2. Severe 3VD 3. HTN 4. Hyperlipidemia 5. s/op CABG 6. POstop afib Added BB prior to developing postop afib Ad IV CCB and IV digoxin on statin; he would like to proceed with PSK9 inhibitor given side effects
[2017-11-26 13:04] LABS: Actual Bicarbonate (HCO3a) 25.7 mEq/L (22-26); Base Excess (BEa) 0.5 mEq/L (0 (+/-) 2.5); CO2 Tension 43.6 mmHg (35.0-45.0); O2 Tension (PaO2) 355.7 mmHg (80.0-100.0); pH, Arterial 7.39 (7.35-7.45)
[2017-11-26 13:06] LABS: Analyzer IN Cardio OR; Calcium, Ionized 1.1 mmol/L (1.12-1.30); Hematocrit-ABG 40.3 % (42.0-52.0); Hemoglobin (Hb) 13.6 g/dL (14.0-18.0)
[2017-11-26 13:07] LABS: Puncture Site ALINE
[2017-11-26 13:07] LABS: Actual Bicarbonate (HCO3a) 23.7 mEq/L (22-26); Base Excess (BEa) -1.1 mEq/L (0 (+/-) 2.5); CO2 Tension 39.8 mmHg (35.0-45.0); Calcium, Ionized 1.1 mmol/L (1.12-1.30); Hematocrit-ABG 37.7 % (42.0-52.0); Hemoglobin (Hb) 12.9 g/dL (14.0-18.0); O2 Tension (PaO2) 326.7 mmHg (80.0-100.0); pH, Arterial 7.39 (7.35-7.45)
[2017-11-26 13:08] LABS: Analyzer IN Cardio OR; Puncture Site ALINE
[2017-11-26 13:08] LABS: Actual Bicarbonate (HCO3a) 28.6 mEq/L (22-26); Base Excess (BEa) 1.7 mEq/L (0 (+/-) 2.5); CO2 Tension 56.2 mmHg (35.0-45.0); Hematocrit-ABG 29.8 % (42.0-52.0); Hemoglobin (Hb) 10.5 g/dL (14.0-18.0); O2 Tension (PaO2) 459.7 mmHg (80.0-100.0); pH, Arterial 7.32 (7.35-7.45)
[2017-11-26 13:09] LABS: pH, Arterial 7.28 (7.35-7.45)
[2017-11-26 13:09] LABS: Analyzer IN Cardio OR; Puncture Site ALINE
[2017-11-26 13:11] LABS: Actual Bicarbonate (HCO3a) 28.5 mEq/L (22-26); Base Excess (BEa) -0.9 mEq/L (0 (+/-) 2.5); Hematocrit-ABG 29.2 % (42.0-52.0); O2 Tension (PaO2) 489.3 mmHg (80.0-100.0)
[2017-11-26 14:02] LABS: Analyzer IN Cardio OR; Hemoglobin (Hb) 10.4 g/dL (14.0-18.0); Puncture Site ALINE
[2017-11-26 14:02] LABS: Actual Bicarbonate (HCO3a) 27.2 mEq/L (22-26); CO2 Tension 56.7 mmHg (35.0-45.0); O2 Tension (PaO2) 490.2 mmHg (80.0-100.0)
[2017-11-26 14:03] LABS: CO2 Tension 57.7 mmHg (35.0-45.0); pH, Arterial 7.29 (7.35-7.45)
[2017-11-26 14:03] LABS: Analyzer IN Cardio OR; Base Excess (BEa) 0.2 mEq/L (0 (+/-) 2.5); Calcium, Ionized 1.1 mmol/L (1.12-1.30); Hematocrit-ABG 28.8 % (42.0-52.0); Hemoglobin (Hb) 10.1 g/dL (14.0-18.0); Puncture Site ALINE
[2017-11-26 14:04] LABS: Actual Bicarbonate (HCO3a) 27.1 mEq/L (22-26); Analyzer IN Cardio OR; Base Excess (BEa) -0.2 mEq/L (0 (+/-) 2.5); Calcium, Ionized 1.2 mmol/L (1.12-1.30); Hematocrit-ABG 30.2 % (42.0-52.0); Hemoglobin (Hb) 10.4 g/dL (14.0-18.0); O2 Tension (PaO2) 385.3 mmHg (80.0-100.0); Puncture Site ALINE
[2017-11-26 14:04] LABS: CO2 Tension 40.4 mmHg (35.0-45.0); pH, Arterial 7.39 (7.35-7.45)
[2017-11-26 14:05] LABS: Actual Bicarbonate (HCO3a) 23.7 mEq/L (22-26); Analyzer IN Cardio OR; Base Excess (BEa) -1.3 mEq/L (0 (+/-) 2.5); Calcium, Ionized 1.2 mmol/L (1.12-1.30); Hematocrit-ABG 32.5 % (42.0-52.0); Hemoglobin (Hb) 11.5 g/dL (14.0-18.0); O2 Tension (PaO2) 278.9 mmHg (80.0-100.0); Puncture Site ALINE
[2017-11-26] MEDS ORDERED: Amiodarone HCl 150 MG, Admixture Fee 1 EACH in Dextrose 5% in Water 100 ML IVPB SCH (15:45)
--- NOTE | 2017-11-26 15:51 | PDOC.PN ---
- Subjective Encounter Start Date: 11/26/17 Encounter Start Time: 15:40 Subjective: f/u for NSTEMI, s/p 4v CABG POD #1. Nsg reports post-op A-fib RVR on -: Cardizem, Digoxin and Amiodarone with persistent RVR. - Objective Resuscitation Status: Resuscitation Status FULL:Full Resuscitation MAR Reviewed: Yes Vital Signs & Weight: Vital Signs (12 hours) Temp Pulse Resp Pulse Ox 11/26/17 14:00 97.6 F 11/26/17 11:47 88 11/26/17 11:42 88 11/26/17 08:00 98.3 F 88 14 98 11/26/17 07:00 98.3 F Weight Weight 210 lb 15.718 oz Most Recent Monitor Data Heart Rate from ECG 158 NIBP 105/54 NIBP BP-Mean 76 Respiration from ECG 0 SpO2 94 I&O: 11/25/17 11/26/17 11/27/17 06:59 06:59 06:59 Intake Total 1056 2818 1820 Output Total 2049 2004 [facility] Balance -165 469 9306 Result Diagrams: 11/26/17 04:00 11/26/17 04:00 Additional Labs: Accuchecks 11/26/17 11/25/17 11/25/17 04:05 23:22 19:51 POC Glucose 112 H 116 H 148 H 11/25/17 11/25/17 17:26 12:47 POC Glucose 142 H 140 H Laboratory Tests 11/23/17 11/23/17 11/23/17 05:31 05:31 09:19 INR 1.0 Hemoglobin A1c Troponin I 0.472 H* 1.002 H* Triglycerides Cholesterol LDL Cholesterol, Calc HDL Cholesterol 11/23/17 11/24/17 11/24/17 11:20 03:23 03:23 INR Hemoglobin A1c 5.3 Troponin I 1.475 H* Triglycerides 124 Cholesterol 240 H LDL Cholesterol, Calc 183 HDL Cholesterol 32 11/25/17 12:50 INR 2.3 Hemoglobin A1c Troponin I Triglycerides Cholesterol LDL Cholesterol, Calc HDL Cholesterol Radiology Reviewed by me: Yes (PCXR - lines/tubes in place, density in L medial ) EKG Reviewed by me: Yes (Tele - A-fib RVR) Phys Exam - Physical Examination Constitutional: NAD HEENT: PERRLA, moist MMs, sclera anicteric, oral pharynx no lesions Neck: no nodes, no JVD, supple, full ROM diminished in bases Respiratory: no wheezing, no rales, no rhonchi tachycardic Cardiovascular: no significant murmur, no rub, gallop, irregular Gastrointestinal: soft, non-tender, no distention, positive bowel sounds Musculoskeletal: no edema, pulses present Neurological: non-focal, normal sensation, moves all 4 limbs Psychiatric: normal affect, A&O x 3 Skin: no rash, normal turgor, cap refill <2 seconds Deviation from normal: Thompson with clear urine Dx/Plan (1) Atrial fibrillation with RVR Code(s): I48.91 - UNSPECIFIED ATRIAL FIBRILLATION Status: Acute Comment: Rate uncontrolled, Amiodarone gtt, Cardizem gtt, Digoxin 0.25mg IV x 2, IVF's (2) NSTEMI (non-ST elevated myocardial infarction) Code(s): I21.4 - NON-ST ELEVATION (NSTEMI) MYOCARDIAL INFARCTION Status: Acute Comment: s/p C proceeding to CABG x 4v, continue ASA (3) Status post coronary artery bypass graft Code(s): Z95.1 - PRESENCE OF AORTOCORONARY BYPASS GRAFT Status: Acute Comment: 4v CABG POD #1, continue routine post-CABG protocol (4) HLD (hyperlipidemia) Code(s): E78.5 - HYPERLIPIDEMIA, UNSPECIFIED Status: Acute Comment: Start Lipitor in am - Plan plan discussed w/ family, thompson catheter, incentive spirometry, DVT proph w/SCDs Continue Amiodarone gtt per protocol -: Cardizem gtt titrating to HR control -: Digoxin IV x 2 doses -: Continue ASA 325mg daily -: AM lab: BMP, CBC, Mg++, TSH * .
[2017-11-26] MEDS: Amiodarone HCl 450 MG, Admixture Fee 1 EACH in Dextrose 5% in Water 250 ML IVPB SCH ×2 (15:57→21:35)
[2017-11-27] MEDS: Ketorolac Tromethamine 30 MG/ML VIAL IVP SCH ×5 (00:04→23:49)
[2017-11-27] MEDS: Lactated Ringer's 500 ML IV SCH ×2 (04:38→06:34)
[2017-11-27 05:57] LABS: #Eosinphils 0.1 thou/uL (0.0-0.7); #Lymphocytes 1.2 thou/uL (1.20-3.40); #Monocytes 0.9 thou/uL (0.11-0.59); #Neutrophils 7.7 thou/uL (1.40-6.50); %Basophils 0.3 % (0.0-1.0); %Lymphocytes 12.2 % (21.0-51.0); %Neutrophils 77.5 % (42.0-75.0); Hemoglobin 10.6 g/dL (14.0-18.0); Mean Corpuscular HGB CONC 33.5 g/dL (32.0-36.0); Mean Corpuscular Hemoglobin 32.3 pg (27.0-31.0); Mean Corpuscular Volume 96.3 fl (80.0-94.0); Mean Platelet Volume 9.1 fL (7.4-10.4); Platelet Count 138 thou/uL (130-400); RBC Distribution Width 11.5 % (11.5-14.5); Red Blood Cell (RBC) Count 3.28 mill/uL (4.70-6.10); White Blood Cell (WBC) Count 9.9 thou/uL (4.8-10.8)
[2017-11-27 06:06] LABS: Anion Gap 6 mmol/L (10-20); BUN (Urea Nitrogen) 19 mg/dL (8.4-25.7); Calc. Creatinine Clearance 120 mL/min (70-130); Calcium 8.4 mg/dL (7.8-10.44); Carbon Dioxide 29 mmol/L (23-31); Chloride 104 mmol/L (98-107); Estimated GFR-MDRD Greater than 90; Glucose 128 mg/dL (80-115); Magnesium 2.3 mg/dL (1.6-2.6); Sodium 135 mmol/L (136-145)
[2017-11-27] MEDS: Furosemide 40 MG TAB PO SCH (07:31)
[2017-11-27] MEDS: Potassium Chloride 10 MEQ TAB PO SCH (07:31)
--- NOTE | 2017-11-27 07:56 | PDOC.CTH ---
Cardiology Progress Note - Subjective Pt back in SR. Still on amio and CCB - Objective Vital Signs Temp Pulse Resp Pulse Ox 11/27/17 07:38 97.7 F 86 15 96 11/27/17 07:00 97.7 F 11/27/17 04:00 98.0 F 11/27/17 00:00 97.2 F L 11/26/17 20:00 97.1 F L 120 H 20 96 Weight 210 lb 5.136 oz 11/26/17 11/27/17 11/28/17 06:59 06:59 06:59 Intake Total 2818 3311.8 240 Output Total 2004 1320 0 Balance 813 1991.8 240 - Physical Examination General/Neuro: alert & oriented x3, NAD Neck: carotid US brisk, no JVD present Lungs: CTA, unlabored respirations Heart: PMI normal, RRR Abdomen: no HSM, NT/ND Extremities: + femoral B - Labs Result Diagrams: 11/27/17 05:30 11/27/17 05:30 Troponin/CKMB CK-MB (CK-2) 6.8 ng/mL (0-6.6) H* 11/23/17 05:31 Troponin I 1.475 ng/mL (< 0.028) H* 11/23/17 11:20 - Assessment/Plan 1. NQWMI 2. Severe 3VD 3. HTN 4. Hyperlipidemia 5. s/op CABG 6. Postop afib On IV amiodarone and CCB Now SR Add BB and wean off the CCB IV DC amiodarone when bag empty Ok to floor this afternoon
--- NOTE | 2017-11-27 08:21 | RAD ---
CHEST 1 VIEW: HISTORY: Post open heart surgery. COMPARISON: Radiograph same day. FINDINGS: Central venous catheter tip in the inferior SVC. Heart size is enlarged. Small left effusion. Mild atelectasis of both lung bases. Drains are similar. There are dilated loops of small bowel in the left upper quadrant of the abdomen . IMPRESSION: Similar appearance of the chest. Dilated loops of bowel left upper quadrant of the abdomen may be se quelae of ileus. POS: [facility]
[2017-11-27] MEDS: Aspirin 325 MG TAB PO SCH (08:26)
[2017-11-27] MEDS: Metoprolol Tartrate 25 MG TAB PO SCH ×2 (08:26→20:44)
[2017-11-27] MEDS: Famotidine 20 MG TAB PO SCH ×2 (08:26→20:44)
[2017-11-27] MEDS: Enoxaparin Sodium 40 MG/0.4 ML SYRINGE SC SCH (08:27)
--- NOTE | 2017-11-27 09:43 | PRG ---
DATE OF SERVICE: 11/27/2017 SERVICE: Pulmonary Medicine. INTERVAL HISTORY: The patient is doing fine from a respiratory standpoint. He denies any chest pain , nausea, vomiting. He is breathing comfortably. He has no specific complaints of fevers or chills. There were no overnight events. PHYSICAL EXAMINATION: VITAL SIGNS: Afebrile, pulse 73, blood pressure 127/65, respirations 25, saturation 100% on 3 liters nasal cannula.. GENERAL: The patient is awake and alert. HEENT: Normocephalic, atraumatic. Sclerae are white, conjunctivae pink. Oral and nasal mucosa is m oist without lesions. LUNGS: Decent air entry. Dependent crackles are minimal. No rhonchi or wheezing is appreciated. HEART: Normal rate, regular. ABDOMEN: Soft, nontender, nondistended. Bowel sounds are positive. MUSCULOSKELETAL: No cyanosis or clubbing. No pitting in the bilateral lower extremities. NEUROLOGIC: Grossly nonfocal. LABORATORY DATA: WBC 9.9, hemoglobin 10.6, platelets 138,000. Basic metabolic profile and magnesium are unremarkable. TSH 1.04. IMAGING: Chest x-ray demonstrates sternotomy wires are once again noted. There is a right-sided sub clavian central venous catheter in good position. Minimal volume loss is present in bibasilar region s. Enlarged small bowel loops are present. Left side thoracostomy drain is once again noted. ASSESSMENT: 1. Acute hypoxic respiratory failure. 2. Left lower lobe atelectasis. 3. Non-ST elevation myocardial infarction. 4. Coronary artery disease, status post coronary artery bypass graft, postoperative day #2. 5. Hypertension. PLAN: We will continue working with mobilizing the patient. Chest tubes have been removed. His is currently pain free. We are still working on his blood pressure. Once he titrates off of our blood pressure agent, he can be transitioned to the telemetry unit.
--- NOTE | 2017-11-27 13:23 | PDOC.PN ---
- Subjective Encounter Start Date: 11/27/17 Encounter Start Time: 11:20 Pt seen for followup re: NSTEMI. Denies chest pain, shortness of breath, fevers or chills. - Objective Resuscitation Status: Resuscitation Status FULL:Full Resuscitation MAR Reviewed: Yes Vital Signs & Weight: Vital Signs (12 hours) Temp Pulse Resp Pulse Ox 11/27/17 12:00 98.6 F 11/27/17 07:38 97.7 F 86 15 96 11/27/17 07:00 97.7 F 11/27/17 04:00 98.0 F Weight Weight 210 lb 5.136 oz Most Recent Monitor Data Heart Rate from ECG 76 NIBP 106/51 NIBP BP-Mean 80 Respiration from ECG 32 SpO2 94 I&O: 11/26/17 11/27/17 11/28/17 06:59 06:59 06:59 Intake Total 2818 3311.8 1386.9 Output Total 2004 1320 230 Balance 813 1991.8 1156.9 Result Diagrams: 11/27/17 05:30 11/27/17 05:30 EKG Reviewed by me: Yes (Tele: NSR) Phys Exam - Physical Examination Constitutional: NAD HEENT: moist MMs Neck: supple Respiratory: clear to auscultation bilateral Cardiovascular: irregular S1, S2 Gastrointestinal: soft Neurological: moves all 4 limbs Psychiatric: normal affect Dx/Plan (1) NSTEMI (non-ST elevated myocardial infarction) Code(s): I21.4 - NON-ST ELEVATION (NSTEMI) MYOCARDIAL INFARCTION Status: Acute Comment: s/p CABG, now in CCU (2) Atrial fibrillation with RVR Code(s): I48.91 - UNSPECIFIED ATRIAL FIBRILLATION Status: Acute Comment: rate-controlled. On amiodarone drip (3) HLD (hyperlipidemia) Code(s): E78.5 - HYPERLIPIDEMIA, UNSPECIFIED Status: Acute Comment: continue statin - Plan * . Review of Systems - Review of Systems Constitutional: negative: fever, chills, sweats, weakness, malaise Cardiovascular: negative: chest pain, palpitations, orthopnea, paroxysmal nocturnal dyspnea, edema, light headedness - Medications/Allergies Allergies/Adverse Reactions: Allergies Allergy/AdvReac Type Severity Reaction Status Date / Time No Known Drug Allergies Allergy Verified 11/23/17 08:23 Medications: Current Medications Acetaminophen (Tylenol) 650 mg PO Q6H PRN PRN Reason: Headache/Fever Or Mild Pain Hydrocodone Bitart/Acetaminophen (Casselberry 5/325) 1 tab PO Q4H PRN PRN Reason: Moderate Pain (4-6) Hydrocodone Bitart/Acetaminophen (Casselberry 5/325) 2 tab PO Q4H PRN PRN Reason: Severe Pain (7-10) Last Admin: 11/26/17 21:33 Dose: 2 tab Al Hydroxide/Mg Hydroxide (Maalox) 30 ml PO Q4H PRN PRN Reason: Indigestion Albuterol/Ipratropium (Duoneb) 3 ml NEB [id number] PRN PRN Reason: SHORTNESS OF BREATH Aspirin (Aspirin) 325 mg PO DAILY COUNTS INCLUDE 234 BEDS AT THE [facility] Last Admin: 11/27/17 08:26 Dose: 325 mg Bisacodyl (Dulcolax) 10 mg PO Q12H PRN PRN Reason: Constipation Bisacodyl (Dulcolax) 10 mg AK Q12H PRN PRN Reason: Constipation Dextrose/Water (Dextrose 50%) 25 gm SLOW IVP PRN PRN PRN Reason: PER HYPOGLYCEMIC PROTOCOL Enoxaparin Sodium (Lovenox) 40 mg SC 0900 COUNTS INCLUDE 234 BEDS AT THE [facility] Last Admin: 11/27/17 08:27 Dose: 40 mg Famotidine (Pepcid) 20 mg PO BID COUNTS INCLUDE 234 BEDS AT THE [facility] Last Admin: 11/27/17 08:26 Dose: 20 mg Furosemide (Lasix) 40 mg PO DAILY-[facility] Last Admin: 11/27/17 07:31 Dose: 40 mg Hydralazine HCl (Apresoline) 10 mg SLOW IVP Q6H PRN PRN Reason: To Maintain SBP< 140mmHG Last Admin: 11/25/17 13:29 Dose: 10 mg Dextrose/Water (D5w) 1,000 mls @ 0 mls/hr IV INF PRN; As Directed PRN Reason: PRN HYPOGLYCEMIC PROTOCOL Diltiazem HCl 125 mg/Miscellaneous Medication 1 each/ Sodium Chloride 125 mls @ 0 mls/hr IVPB INF ELIZABETH; As Directed PRN Reason: Protocol Last Admin: 11/26/17 11:48 Dose: 125 mls Amiodarone HCl 450 mg/Miscellaneous Medication 1 each/ Dextrose/Water 259 mls @ 0 mls/hr IVPB INF ELIZABETH; As Directed PRN Reason: Protocol Last Admin: 11/26/17 21:35 Dose: 259 mls Ketorolac Tromethamine (Toradol) 15 mg IVP Q6HR COUNTS INCLUDE 234 BEDS AT THE [facility] Stop: 11/28/17 18:01 Last Admin: 11/27/17 12:26 Dose: 15 mg Metoprolol Tartrate (Lopressor) 25 mg PO BID COUNTS INCLUDE 234 BEDS AT THE [facility] Last Admin: 11/27/17 08:26 Dose: 25 mg Morphine Sulfate (Morphine) 2 mg SLOW IVP Q15MIN PRN PRN Reason: Severe Pain (7-10) Last Admin: 11/25/17 12:58 Dose: 2 mg Ondansetron HCl (Zofran) 4 mg IVP Q6H PRN PRN Reason: Nausea/Vomiting Last Admin: 11/25/17 13:32 Dose: 4 mg Potassium Chloride (Kcl) 20 meq IVPB PRN PRN PRN Reason: K level </= 4.0 Potassium Chloride (Klor-Con 10) 10 meq PO QAM-[facility] Last Admin: 11/27/17 07:31 Dose: 10 meq Promethazine HCl (Phenergan) 6.25 mg IM Q4H PRN PRN Reason: Nausea/Vomiting
[2017-11-28] MEDS ORDERED: Amiodarone HCl 150 MG, Admixture Fee 1 EACH in Dextrose 5% in Water 100 ML IVPB SCH (01:15)
[2017-11-28] MEDS ORDERED: Amiodarone HCl 450 MG, Admixture Fee 1 EACH in Dextrose 5% in Water 250 ML IVPB SCH (01:25)
[2017-11-28 05:39] LABS: #Eosinphils 0.3 thou/uL (0.0-0.7); #Lymphocytes 1.5 thou/uL (1.20-3.40); #Monocytes 0.8 thou/uL (0.11-0.59); #Neutrophils 5.5 thou/uL (1.40-6.50); %Basophils 0.3 % (0.0-1.0); %Eosinophils 3.3 % (0.0-10.0); %Lymphocytes 18.6 % (21.0-51.0); %Monocytes 9.5 % (0.0-10.0); %Neutrophils 68.3 % (42.0-75.0); Hemoglobin 10.3 g/dL (14.0-18.0); Mean Corpuscular HGB CONC 33.6 g/dL (32.0-36.0); Mean Corpuscular Hemoglobin 32.2 pg (27.0-31.0); Mean Corpuscular Volume 95.9 fl (80.0-94.0); Mean Platelet Volume 9.3 fL (7.4-10.4); Platelet Count 157 thou/uL (130-400); RBC Distribution Width 11.4 % (11.5-14.5)
[2017-11-28 05:55] LABS: Anion Gap 8 mmol/L (10-20); BUN (Urea Nitrogen) 25 mg/dL (8.4-25.7); Calc. Creatinine Clearance 108 mL/min (70-130); Calcium 8.5 mg/dL (7.8-10.44); Carbon Dioxide 30 mmol/L (23-31); Chloride 103 mmol/L (98-107); Estimated GFR-MDRD 82; Glucose 110 mg/dL (80-115); Sodium 137 mmol/L (136-145)
[2017-11-28] MEDS: Ketorolac Tromethamine 30 MG/ML VIAL IVP SCH ×3 (06:18→18:17)
[2017-11-28] MEDS: Enoxaparin Sodium 40 MG/0.4 ML SYRINGE SC SCH ×2 (08:34→21:15)
[2017-11-28] MEDS: Aspirin 325 MG TAB PO SCH (08:35)
[2017-11-28] MEDS: Famotidine 20 MG TAB PO SCH ×2 (08:35→21:13)
[2017-11-28] MEDS: Potassium Chloride 10 MEQ TAB PO SCH (08:35)
[2017-11-28] MEDS: Furosemide 40 MG TAB PO SCH (08:35)
[2017-11-28] MEDS: Metoprolol Tartrate 25 MG TAB PO SCH ×2 (08:35→21:13)
--- NOTE | 2017-11-28 09:50 | RAD ---
PORTABLE PURIGHT FRONTAL CHEST RADIOGRAPH: DATE: 11/28/17. COMPARISON: 11/27/17. HISTORY: Reevaluate chest following open-heart surgery. FINDINGS: Dense nonspecific opacity noted in the medial left lung base, stable. Midline sternotomy wires and r ight-sided vascular catheter noted. No pneumothorax. The right lung appears clear. IMPRESSION: Postoperative changes as above. Nonspecific increased density noted in the left lung base, for which followup is advised. POS: [facility]
--- NOTE | 2017-11-28 11:37 | PDOC.PN ---
- Subjective Encounter Start Date: 11/28/17 Encounter Start Time: 11:30 Subjective: f/u s/p CABG x 4v POD #4 with severe 3v CAD. Post-op A-fib RVR on -: Amiodarone gtt, Metoprolol. Rate variable in low 100's. - Objective Resuscitation Status: Resuscitation Status FULL:Full Resuscitation MAR Reviewed: Yes Vital Signs & Weight: Vital Signs (12 hours) Temp Pulse Resp BP BP Pulse Ox 11/28/17 08:35 98.1 F 116 H 17 113/68 96 11/28/17 04:00 98.2 F 104 H 18 124/67 96 Weight Weight 235 lb 8 oz Most Recent Monitor Data Heart Rate from ECG 77 NIBP 125/60 NIBP BP-Mean 70 Respiration from ECG 26 SpO2 98 I&O: 11/27/17 11/28/17 11/29/17 06:59 06:59 06:59 Intake Total 3311.8 2166.9 Output Total 1320 1010 Balance 1991.8 1156.9 Result Diagrams: 11/28/17 04:52 11/28/17 04:52 Additional Labs: Laboratory Tests 11/23/17 11/23/17 11/23/17 05:31 05:31 09:19 Hgb INR 1.0 Hemoglobin A1c Magnesium Troponin I 0.472 H* 1.002 H* Triglycerides Cholesterol LDL Cholesterol, Calc HDL Cholesterol TSH 3rd Generation 11/23/17 11/24/17 11/24/17 11:20 03:23 03:23 Hgb INR Hemoglobin A1c 5.3 Magnesium Troponin I 1.475 H* Triglycerides 124 Cholesterol 240 H LDL Cholesterol, Calc 183 HDL Cholesterol 32 TSH 3rd Generation 11/25/17 11/25/17 11/26/17 12:50 18:24 04:00 Hgb 13.2 L 12.1 L INR 2.3 Hemoglobin A1c Magnesium Troponin I Triglycerides Cholesterol LDL Cholesterol, Calc HDL Cholesterol TSH 3rd Generation 11/27/17 11/27/17 11/27/17 05:30 05:30 05:30 Hgb 10.6 L INR Hemoglobin A1c Magnesium 2.3 Troponin I Triglycerides Cholesterol LDL Cholesterol, Calc HDL Cholesterol TSH 3rd Generation 1.0412 Radiology Reviewed by me: Yes (PCXR - LLL atelectasis) EKG Reviewed by me: Yes (Tele - A-fib in low 100's) Phys Exam - Physical Examination Constitutional: NAD HEENT: PERRLA, moist MMs, sclera anicteric, oral pharynx no lesions Neck: no nodes, no JVD, supple, full ROM Respiratory: no wheezing, no rales, no rhonchi, clear to auscultation bilateral tachycardic S1, S2 Cardiovascular: no significant murmur, no rub, gallop, irregular Gastrointestinal: soft, non-tender, no distention, positive bowel sounds Musculoskeletal: no edema, pulses present Neurological: non-focal, normal sensation, moves all 4 limbs Psychiatric: normal affect, A&O x 3 Skin: no rash, normal turgor, cap refill <2 seconds Dx/Plan (1) Atrial fibrillation with RVR Code(s): I48.91 - UNSPECIFIED ATRIAL FIBRILLATION Status: Acute Comment: Converted to SR today, continue Amiodarone gtt completing current IV bag then convert to po, increase Lovenox 40mg sc q12h (2) NSTEMI (non-ST elevated myocardial infarction) Code(s): I21.4 - NON-ST ELEVATION (NSTEMI) MYOCARDIAL INFARCTION Status: Acute Comment: s/p CABG, continue ASA and Lipitor (3) Status post coronary artery bypass graft Code(s): Z95.1 - PRESENCE OF AORTOCORONARY BYPASS GRAFT Status: Acute Comment: 4v CABG POD #4, continue routine post-CABG protocol (4) HLD (hyperlipidemia) Code(s): E78.5 - HYPERLIPIDEMIA, UNSPECIFIED Status: Acute Comment: Lipitor 40mg HS - Plan plan discussed w/ family, PT/OT, dialysis social worker, out of bed/ambulate, DVT proph w/SCDs Stable overall -: Continue Amiodarone gtt completing current IV bag -: Continue Metoprolol 25mg BID -: Start Lipitor 40mg HS -: Change Lovenox 40mg sc q12h * AM lab: BMP, CBC
--- NOTE | 2017-11-28 19:31 | PRG ---
DATE OF SERVICE: 11/28/2017 SERVICE: Pulmonary Medicine. INTERVAL HISTORY: The patient is doing fine from a cardiovascular and respiratory standpoint. He de nies any current shortness of breath, chest pain, nausea, vomiting, fevers, or chills. He has been u p walking with physical therapy. He has no dyspnea that is limiting his activity currently. PHYSICAL EXAMINATION: VITAL SIGNS: Afebrile, pulse 69, blood pressure 114/59, respirations 17, saturation 95% on room air. GENERAL: The patient is awake, alert, in no apparent distress. LUNGS: Excellent air entry without prolonged expiratory phase, wheezing, rhonchi, or crackles. HEART: Normal rate, regular. ABDOMEN: Soft, nontender, nondistended. Bowel sounds are positive. MUSCULOSKELETAL: No cyanosis or clubbing. No pitting in the bilateral lower extremities. NEUROLOGIC: Grossly nonfocal. LABORATORY DATA: WBC 8, hemoglobin 10.3, platelets 157,000. Basic metabolic profile is unremarkable . TSH was 1.04. IMAGING: Chest x-ray demonstrates sternotomy wires are once again noted. Atelectasis of the left lo wer lobe remains. There is a right-sided subclavian central venous catheter, which is in good positi on. ASSESSMENT: 1. Acute hypoxic respiratory failure, resolved. 2. Atelectasis of the left lower lobe, suspected. 3. Kvj-LO-xpugdxzom myocardial infarction. 4. Coronary artery disease, status post coronary artery bypass graft, postoperative day #3. 5. Atrial fibrillation with rapid ventricular response, returned to sinus rhythm. 6. Hypertension. DISCUSSION AND PLAN: The patient is doing absolutely fantastic from respiratory perspective. He hugh l need a repeat chest x-ray in the outpatient setting. He should be empirically treated for pneumoni a if he develops signs of sepsis, which he currently does not have. At this point, he has no further requirements for Pulmonary or Critical Care opinion, and will sign off. Please call with additional questions or concerns.
[2017-11-28] MEDS ORDERED: Atorvastatin Calcium 40 MG TAB PO SCH (21:00)
[2017-11-28] MEDS: Amiodarone 200 MG TAB PO SCH (21:13)
[2017-11-29 05:29] LABS: #Eosinphils 0.4 thou/uL (0.0-0.7); #Lymphocytes 1.6 thou/uL (1.20-3.40); #Monocytes 0.7 thou/uL (0.11-0.59); #Neutrophils 5.4 thou/uL (1.40-6.50); %Basophils 0.3 % (0.0-1.0); %Monocytes 8.2 % (0.0-10.0); %Neutrophils 66.6 % (42.0-75.0); Hemoglobin 9.9 g/dL (14.0-18.0); Mean Corpuscular HGB CONC 33.6 g/dL (32.0-36.0); Mean Corpuscular Hemoglobin 32.3 pg (27.0-31.0); Mean Corpuscular Volume 96.2 fl (80.0-94.0); Mean Platelet Volume 8.8 fL (7.4-10.4); Platelet Count 212 thou/uL (130-400); RBC Distribution Width 11.6 % (11.5-14.5); Red Blood Cell (RBC) Count 3.08 mill/uL (4.70-6.10); White Blood Cell (WBC) Count 8.1 thou/uL (4.8-10.8)
[2017-11-29 06:12] LABS: Anion Gap 10 mmol/L (10-20); BUN (Urea Nitrogen) 26 mg/dL (8.4-25.7); Calc. Creatinine Clearance 112 mL/min (70-130); Calcium 8.8 mg/dL (7.8-10.44); Carbon Dioxide 28 mmol/L (23-31); Chloride 105 mmol/L (98-107); Estimated GFR-MDRD 75; Glucose 109 mg/dL (80-115); Potassium 4.5 mmol/L (3.5-5.1); Sodium 138 mmol/L (136-145)
[2017-11-29] MEDS: Furosemide 40 MG TAB PO SCH (08:50)
[2017-11-29] MEDS: Aspirin 325 MG TAB PO SCH (08:50)
[2017-11-29] MEDS: Famotidine 20 MG TAB PO SCH (08:50)
[2017-11-29] MEDS: Amiodarone 200 MG TAB PO SCH (08:50)
[2017-11-29] MEDS: Potassium Chloride 10 MEQ TAB PO SCH (08:50)
[2017-11-29] MEDS: HYDROcodone/Acetaminophen 5/325 mg Tablet PO PRN (08:51)
[2017-11-29] MEDS: Enoxaparin Sodium 40 MG/0.4 ML SYRINGE SC SCH (08:51)
[2017-11-29] MEDS: Metoprolol Tartrate 25 MG TAB PO SCH (08:51)
[2017-11-29 14:31] VITALS: BP 129/67; TEMP 98.6
--- NOTE | 2017-11-29 18:02 | DIS ---
HOSPITAL COURSE: The patient was admitted through the emergency room with chest pain, underwent card iac catheterization and was found to have triple vessel coronary disease. On 11/25/2017, he underwen t bypass grafting to the LAD, distal right coronary artery, diagonal, and obtuse marginal with a radi al graft to the obtuse marginal and GUTIERREZ to the LAD. His preoperative echo showed a hypokinetic arjun on of the inferior lateral wall. He had some paroxysmal atrial fibrillation postoperatively and this diminished in frequency. He will be discharged home on his admitting medicine of aspirin 1 a day, L ivalo 2 mg a day with the addition of amiodarone 400 mg b.i.d. for 1 week, then 200 mg b.i.d. for a m onth, Eliquis 5 mg b.i.d. for 1 month, metoprolol 25 b.i.d. Discharge and follow up instructions hav e been given.
--- NOTE | 2017-11-30 01:03 | DIS ---
DATE OF ADMISSION: 11/23/2017 DATE OF DISCHARGE: 11/29/2017 DISCHARGE DIAGNOSES: 1. Non-ST elevation myocardial infarction. 2. Status post coronary artery bypass grafting x4 vessels. 3. Atrial fibrillation with rapid ventricular response, postoperatively resolved. 4. Hypertension. 5. Hyperlipidemia. CONSULTATIONS: Dr. Figueroa with Cardiovascular Surgery service. Dr. Duran with Pulmonology Service. Dr. Carney and Dr. Cabrales with Cardiology Service. PERTINENT LABORATORY DATA AND X-RAY FINDINGS: Basic metabolic profile within normal limits. Magnesi um 2.3. Troponin I ranged between 0.472 to 1.48. Total cholesterol 240s, triglycerides 124, HDL 32, LDL 183. TSH 1.04. BNP 83. CBC showed a hemoglobin ranging between 9.9 to 13.2. A 2D transthorac ic echocardiogram dated on 11/24/2017 showed ejection fraction of 50%-55%. Hypokinesis of the inferi or lateral wall of the left ventricle. Diastolic dysfunction. HOSPITAL COURSE: Patient was admitted to the Critical Care Unit after presenting with chest pain. Clarisa villafana was noted with increasing troponin I concerning for non-ST elevation myocardial infarction. Clarisa villafana received Lovenox initially in the emergency department and aspirin. Patient was evaluated by the Cardiology service undergoing left heart catheterization showing evidence of severe three-vessel coronary artery disease. Patient underwent 2D transthoracic echocardiogram showing overall preserved ejection fraction as stated previously. Patient underwent a successful coronary artery bypass graft ing on 11/25/2017 with left internal mammary artery to distal LAD, saphenous vein graft to right grisel nary artery and a saphenous vein graft to diagonal artery and a radial artery to obtuse marginal #1. Postoperatively, patient developed atrial fibrillation with rapid ventricular response requiring IV Cardizem, digoxin, and amiodarone. Patient was followed by the Cardiology service, titrating appropr iate medical therapy with difficult to control rate. Patient also received metoprolol 25 mg b.i.d. i n addition to Eliquis 5 mg b.i.d. Patient did appropriately meet post coronary artery bypass graftin g milestones and was transferred to the telemetry unit. Patient worked with cardiac rehabilitation t [facility] with overall stable vital signs. Patient continued to clinically improve and was deemed appropri ate for discharge on 11/29/2017. DISCHARGE MEDICATIONS: 1. Amiodarone 400 mg p.o. t.i.d. 2. Eliquis 5 mg p.o. b.i.d. 3. Enteric-coated aspirin 81 mg p.o. at bedtime. 4. [place] 5/325 mg 1-2 tabs p.o. q.4-6 hours p.r.n. 5. Metoprolol 25 mg p.o. b.i.d. 6. Livalo 2 mg p.o. at bedtime. FOLLOWUP: Patient to follow up with Dr. Donte Vazquez within 7 days of discharge. Patient will fol low up with Dr. Ho Cabrales 2-3 weeks after discharge. Patient will follow up with Dr. Austyn wills within 2 weeks of discharge. CONDITION ON DISCHARGE: Stable. ACTIVITY: Ad-tri. DIET: Heart-healthy. CODE STATUS: FULL. DISPOSITION: Home on 11/29/2017.
== END 2017-11-29 14:34 | disposition home or self-care (01) | DRG 234 ==
LOC: ERS 04:58 → EEVIPCON 04:58 → IMCU/EMU 06:49 → CCU 16:49 → 2NO 11-27 16:34
PROVIDERS: ADMIT Internal Medicine; ATTEND Internal Medicine
PROC: 4A023N7 Measurement of Cardiac Sampling and Pressure, Left Heart, Percutaneous Approach (ICD-10-PCS; principal; 2017-11-23)
PROC: B211YZZ Fluoroscopy of Multiple Coronary Arteries using Other Contrast (ICD-10-PCS; 2017-11-23)
PROC: 02100AW Bypass Coronary Artery, One Artery from Aorta with Autologous Arterial Tissue, Open Approach (ICD-10-PCS; 2017-11-25)
PROC: 02100Z9 Bypass Coronary Artery, One Artery from Left Internal Mammary, Open Approach (ICD-10-PCS; 2017-11-25)
PROC: 03BC0ZZ Excision of Left Radial Artery, Open Approach (ICD-10-PCS; 2017-11-25)
PROC: 021109W Bypass Coronary Artery, Two Arteries from Aorta with Autologous Venous Tissue, Open Approach (ICD-10-PCS; 2017-11-25)
PROC: 5A1221Z Performance of Cardiac Output, Continuous (ICD-10-PCS; 2017-11-25)
PROC: 06BQ0ZZ Excision of Left Saphenous Vein, Open Approach (ICD-10-PCS; 2017-11-25)
DX: I21.4 Non-ST elevation (NSTEMI) myocardial infarction (principal); J98.11 Atelectasis; I25.110 Atherosclerotic heart disease of native coronary artery with unstable angina pectoris; I48.0 Paroxysmal atrial fibrillation; E78.4 Other hyperlipidemia; I10 Essential (primary) hypertension; I16.0 Hypertensive urgency; Z79.82 Long term (current) use of aspirin; Z79.899 Other long term (current) drug therapy; Z83.49 Family history of other endocrine, nutritional and metabolic diseases; Z82.49 Family history of ischemic heart disease and other diseases of the circulatory system
CPT/HCPCS: 36415; 36416; 36430; 71045; 80048; 80053; 80061; 82550; 82553; 82805; 83036; 83735; 83880; 84443; 84484; 85025; 85379; 85610; 85730; 86850; 86900; 86901; 93005; 93010; 93306; 93458; 93798; 94002; 94150; 96372; 99152; A4216; C1769; J0282; J0360; J0583; J1160; J1642; J1644; J1650; J1815; J1885; J2001; J2250; J2405; J2440; J2704; J2720; J3010; J3370; J3475; J7050; J7070; P9016; P9045; S0028